=== PATIENT | male | born 1960 | race Caucasian/White ===

== ENCOUNTER 2020-04-23 11:52 | Outpatient (REF) | payer MEDICAID, SELFPAY ==
[2020-04-23 19:04] LABS: HCT 44.5 % (40.0-50.0); HGB 14.9 g/dL (13.5-17.5); Mean Corp. HGB Concentration 33.5 g/dL (32.0-36.0); Mean Corpuscular Hemoglobin 29.9 pg (27.0-33.0); Mean Corpuscular Volume 89.2 fL (80-95); Mean Platelet Volume 9.4 fL (8.0-11.0); Platelet Count 289 x1000/uL (130-400); RBC 4.99 m/cumm (4.50-6.00); RBC Distribution Width 13.3 % (11.8-14.1); White Blood Cell Count 10.44 k/cumm (4.4-10.8)
[2020-04-23 19:30] LABS: ALT 30 U/L (16-63); AST 42 U/L (15-37); Alkaline Phosphatase 115 U/L (46-116); Anion Gap 5.7 mmol/L (3-11); BUN 13 mg/dL (7-18); Bilirubin, Total 0.5 mg/dL (0.2-1.0); CO2 31.3 mmol/L (21.0-32.0); CREATININE 1.05 mg/dL (0.70-1.30); Calcium 9.1 mg/dL (8.5-10.1); Chloride 103 mmol/L (98-107); Glucose 84 mg/dL (74-106); Sodium 140 mmol/L (136-145); Total Protein 6.9 g/dL (6.4-8.2)
[2020-04-27 09:58] LABS: CA 125 7 U/mL (<30)
== END 2020-04-23 12:12 ==
LOC: NCHCN 11:52
PROVIDERS: PCP Nurse Practitioner Family; Visit Provider Nurse Practitioner Family
DX: R63.4 Abnormal weight loss (principal)
CPT/HCPCS: 80053; 85027; 86304

== ENCOUNTER 2021-11-29 14:40 | Outpatient (REF) | payer MEDICAID, SELFPAY ==
[2021-12-01 12:24] LABS: COVID-19 RT-PCR UVMMC Result Negative (Negative)
== END 2021-11-29 14:41 | disposition home or self-care (01) ==
LOC: NCHCN 14:40
PROVIDERS: PCP Nurse Practitioner Family; Visit Provider Internal Medicine
DX: Z20.822 Contact with and (suspected) exposure to COVID-19 (principal)
CPT/HCPCS: U0003

== ENCOUNTER 2022-12-07 20:51 | Outpatient (REF) | payer MEDICAID, SELFPAY ==
[2022-12-07 21:26] LABS: HGB 13.1 g/dL (13.5-17.5); MCH 29.7 pg (27.0-33.0); MCHC 32.8 % (32.0-36.0); MCV 91 fL (80-95); MPV 9.4 fL (8.0-11.0); Platelet Count 354 10^3/uL (130-400); RBC 4.41 10^6/uL (4.36-5.78); RDW 14.5 % (11.8-14.1); RDW-SD 48.5 fL; WBC 12.27 10^3/uL (4.4-10.8)
[2022-12-09 14:15] LABS: HIV-1/2 Ag & Ab Screen Negative (Negative)
[2022-12-09 14:39] LABS: Syphilis Serology (RPR) Negative (Negative)
[2022-12-12 15:49] LABS: Hepatitis C Ab w Rflx HCV PCR Negative (Negative)
== END 2022-12-07 20:52 | disposition home or self-care (01) ==
LOC: NCHCN 20:51
PROVIDERS: PCP Nurse Practitioner Family; Visit Provider Internal Medicine
DX: R59.0 Localized enlarged lymph nodes (principal); F17.200 Nicotine dependence, unspecified, uncomplicated; Z11.59 Encounter for screening for other viral diseases
CPT/HCPCS: 85027; 86803; 87389; 86592

== ENCOUNTER 2025-09-10 11:20 | Outpatient (REF) | payer SELFPAY ==
[2025-09-10 20:45] LABS: Abs Immature Grans 0.03 10^3/uL (0.0-0.06); HCT 46.1 % (40.0-50.0); HGB 14.9 g/dL (13.5-17.5); Immature Grans % 0.4 %; MCH 30.5 pg (27.0-33.0); MCHC 32.3 % (32.0-36.0); MCV 95 fL (80-95); MPV 9.5 fL (8.0-11.0); Platelet Count 319 10^3/uL (130-400); RBC 4.88 10^6/uL (4.36-5.78); RDW 13.6 % (11.8-14.1); RDW-SD 47.4 fL; WBC 7.12 10^3/uL (4.4-10.8)
[2025-09-10 21:19] LABS: Anion Gap 2.7 mmol/L (3-11); BUN 18 mg/dL (9-23); CO2 28.3 mmol/L (20.0-31.0); Calcium 8.9 mg/dL (8.3-10.6); Chloride 107 mmol/L (98-107); Cholesterol 204 mg/dL (<200); Glucose 106 mg/dL (74-106); HDL Cholesterol 43 mg/dL (>40); Potassium 4.4 mmol/L (3.5-5.1); Sodium 138 mmol/L (136-145)
== END 2025-09-10 11:21 | disposition home or self-care (01) ==
LOC: NCHCN 11:20
PROVIDERS: PCP Nurse Practitioner Family; Visit Provider Nurse Practitioner
DX: I10 Essential (primary) hypertension (principal)
CPT/HCPCS: 80048; 80061; 83721; 85025